=== PATIENT | male | born 1990 | race African-American/Black ===

== ENCOUNTER 2016-09-27 16:47 | Emergency (ER) | payer MEDICAID ==
[2016-09-27 17:59] VITALS: BP 152/86
[2016-09-27] MEDS ORDERED: ACETAMINOPHEN 325 MG TAB PO ONE (18:00)
[2016-09-27] MEDS ORDERED: cefTRIAXone SOD 1,000 MG VL IM ONE (18:00)
[2016-09-27] MEDS ORDERED: ACETAMINOPHEN 650 mg PER 20 mL UD ONE (18:06)
== END 2016-09-27 18:14 | disposition home or self-care (01) ==
LOC: ER 16:54
DX: L03.211 Cellulitis of face (principal); K02.9 Dental caries, unspecified
CPT/HCPCS: 96372; 99283; J0696